=== PATIENT | male | born 1995 | race Caucasian/White ===

== ENCOUNTER 2017-02-25 20:57 | Emergency (ER) | payer BC ==
[~2017-02-25] VITALS: Ht 182.9 cm; Wt 105.3 kg
[2017-02-25 20:57] VITALS: Ht 182.9 cm; Wt 105.3 kg
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
--- NOTE | 2017-02-25 21:46 | DIAGNOSTIC IMAGING REPORT ---
LEFT KNEE 2 VIEWS CLINICAL HISTORY: Fall with knee deformity. FINDINGS: AP and crosstable lateral portable views of left knee are obtained. No prior studies are available for comparison at the time of dictation. The skeletal structures are well mineralized. No fracture is clearly seen. There is dislocation of the knee with anterior translation of the tibia. There is also lateral distraction of the tibia. A large joint effusion is identified. Overlying soft tissue edema is noted. IMPRESSION: 1. Anterior knee dislocation as above with large joint effusion and soft tissue swelling. 2. No fracture is clearly identified. Electronically signed by: Oliverio Aponte M.D. 02/25/2017 9:44 PM Dictated Date/Time: 02/25/2017 9:41 PM
--- NOTE | 2017-02-25 21:53 | DIAGNOSTIC IMAGING REPORT ---
CT SCAN OF THE BRAIN WITHOUT IV CONTRAST CLINICAL HISTORY: Fall. Head injury. COMPARISON STUDY: No priors. TECHNIQUE: Unenhanced axial CT scan of the brain is performed from the vertex to the skull base. Automated dose control exposure was utilized. CT DOSE: 537.48 mGy.cm FINDINGS: Brain parenchyma: The brain parenchyma is normal in appearance. There is no parenchymal hematoma, mass effect, or evidence of acute territorial ischemia by CT criteria. Caro-white matter is preserved. There is trace subdural hemorrhage identified along the left tentorium cerebella lead. Ventricles, sulci, cisterns: Normal in configuration. Intracranial vasculature: The visualized intracranial vasculature at the skull base is normal in appearance. Calvarium: There is no depressed calvarial fracture. Soft tissues: There is a moderate posterior scalp hematoma with laceration. Sinuses and mastoids: The visualized paranasal sinuses are clear. The mastoid air cells are well pneumatized. Orbits: The bony orbits are grossly intact. IMPRESSION: 1. Trace subdural hemorrhage is seen along the left tentorium cerebelli. 2. Posterior scalp hematoma and laceration. No depressed calvarial fracture is seen. Electronically signed by: Oliverio Aponte M.D. 02/25/2017 9:51 PM Dictated Date/Time: 02/25/2017 9:47 PM
[2017-02-25] MEDS ORDERED: LORAZEPAM 2 MG/ML 1 ML VIAL IV STA (22:01)
[2017-02-25] MEDS ORDERED: SODIUM CHLORIDE 0.9% 1000ML 1,000 ML IV STA (22:01)
[2017-02-25] MEDS ORDERED: ONDANSETRON INJ 2 MG/ML 2 ML VIAL IV STA (22:01)
[2017-02-25] MEDS ORDERED: MoRPHine SULFATE 4 MG/ML 1 ML CARP\\VIAL IV STA (22:01)
[2017-02-25] MEDS ORDERED: SODIUM CHLORIDE 0.9% 500ML 500 ML IV STA (22:01)
[2017-02-25 22:16] LABS: HEMATOCRIT 46.4 % (42-52); MEAN CELL VOLUME 84.7 fL (80-100); MEAN CORPUSCULAR HEMOGLOBIN 29.4 pg (25-34); MEAN CORPUSCULAR HGB CONC 34.7 g/dl (32-36); MEAN PLATELET VOLUME 9.3 fL (7.4-10.4); PLATELET COUNT 234 K/uL (130-400); RED BLOOD COUNT 5.48 M/uL (4.7-6.1)
[2017-02-25 22:39] VITALS: BP 180/105; PULSE 109; TEMP 37.8; O2SAT 98
[2017-02-25 22:43] LABS: BUN/CREATININE RATIO 17.1 (10-20); POTASSIUM 3.8 mmol/L (3.5-5.1)
[2017-02-25 22:44] LABS: CALCIUM 8.8 mg/dl (8.5-10.1)
== END 2017-02-25 22:45 | disposition short-term general hospital (02) ==
LOC: EDBD 20:57 → C.EDA 20:58
DX: S06.5X9A Traumatic subdural hemorrhage with loss of consciousness of unspecified duration, initial encounter (principal); S01.01XA Laceration without foreign body of scalp, initial encounter; S83.105A Unspecified dislocation of left knee, initial encounter; V18.0XXA Pedal cycle driver injured in noncollision transport accident in nontraffic accident, initial encounter; Y92.488 Other paved roadways as the place of occurrence of the external cause

== ENCOUNTER → 2017-09-06 | Outpatient (CLI) | payer BC ==
[2017-09-06 17:42] LABS: BASO % 0.5 %; BASO ABS # 0.03 K/uL (0-0.2); EOS ABS # 0.06 K/uL (0-0.5); HEMATOCRIT 46.6 % (42-52); HEMOGLOBIN 16.6 g/dL (14.0-18.0); IG# 0.01 K/uL (0.00-0.02); LYMPH % 23.2 %; LYMPH ABS # 1.35 K/uL (1.2-3.4); MEAN CELL VOLUME 86.8 fL (80-100); MEAN CORPUSCULAR HEMOGLOBIN 30.9 pg (25-34); MEAN CORPUSCULAR HGB CONC 35.6 g/dl (32-36); MEAN PLATELET VOLUME 9.9 fL (7.4-10.4); MONO % 6.5 %; MONO ABS # 0.38 K/uL (0.11-0.59); NEUT % 68.6 %; PLATELET COUNT 210 K/uL (130-400); RED CELL DISTRIBUTION WIDTH CV 13.5 % (11.5-14.5); RED CELL DISTRIBUTION WIDTH SD 42.6 fL (36.4-46.3); WHITE BLOOD COUNT 5.83 K/uL (4.8-10.8)
[2017-09-06 17:54] LABS: PTT PATIENT 26.9 SECONDS (21.0-31.0)
[2017-09-06 18:15] LABS: ALBUMIN 4.2 gm/dl (3.4-5.0); ALT/SGPT 32 U/L (12-78); AST/SGOT 22 U/L (15-37); BLOOD UREA NITROGEN 14 mg/dl (7-18); CALCIUM 9.1 mg/dl (8.5-10.1); CARBON DIOXIDE 26 mmol/L (21-32); CREATININE 0.93 mg/dl (0.60-1.40); GLUCOSE 89 mg/dl (70-99); POTASSIUM 3.9 mmol/L (3.5-5.1); SODIUM 139 mmol/L (136-145)
[2017-09-06 18:23] LABS: ALKALINE PHOSPHATASE 64 U/L (45-117); TOTAL PROTEIN 7.8 gm/dl (6.4-8.2)
== END | disposition home or self-care (01) ==
LOC: C.LAB1850 17:14
PROVIDERS: ATTEND Orthopaedic Surgery
DX: S83.102D Unspecified subluxation of left knee, subsequent encounter (principal); S83.282D Other tear of lateral meniscus, current injury, left knee, subsequent encounter; S83.412D Sprain of medial collateral ligament of left knee, subsequent encounter; S83.512D Sprain of anterior cruciate ligament of left knee, subsequent encounter; S82.402A Unspecified fracture of shaft of left fibula, initial encounter for closed fracture; S72.425A Nondisplaced fracture of lateral condyle of left femur, initial encounter for closed fracture; I99.8 Other disorder of circulatory system; X58.XXXA Exposure to other specified factors, initial encounter; X58.XXXD Exposure to other specified factors, subsequent encounter